=== PATIENT | male | born 1975 | race Caucasian/White ===

== ENCOUNTER 2020-07-10 12:36 | Observation (INO) ==
[2020-07-10] MEDS ORDERED: *HR* LORazepam 2 MG/ML VIAL ONE (12:45)
[2020-07-10] MEDS ORDERED: Isovue-370 500 ML BOTTLE IVP ONE (12:51)
[2020-07-10] MEDS ORDERED: levETIRAcetam 1,000 MG in 0.9 % Sodium Chloride 100 ML IVPB ONE (12:51)
[2020-07-10 13:36] LABS: Basophils # 0.1 K/mcL (0.0-0.2); Basophils % 0.6 %; Eosinophils # 0.1 K/mcL (0.0-0.6); Eosinophils % 1.3 %; Hematocrit 49.9 % (37.5-50.1); Hemoglobin 17.1 g/dL (12.9-16.9); Immature Granulocytes % 0.2 % (0-4); Lymphocytes % 19.3 %; Mean Corpuscular HGB Conc 34.3 g/dL (31.6-35.5); Mean Corpuscular Hemoglobin 30.3 pg (28.0-33.3); Mean Corpuscular Volume 88.5 fL (83.0-100.0); Mean Platelet Volume 10.7 fL (9.4-12.4); Monocytes # 0.5 K/mcL (0.0-1.3); Monocytes % 4.4 %; Neutrophils # 7.8 K/mcL (1.6-8.9); Platelet Count 273 K/mcL (140-400); Red Blood Count 5.64 M/mcL (4.19-5.50); Segmented Neutrophils % 74.2 %; White Blood Count 10.5 K/mcL (4.3-11.1)
[2020-07-10 13:45] LABS: INR 1.2; Prothrombin Time 13.5 Seconds (9.4-12.1)
[2020-07-10 13:54] LABS: Alanine Aminotransferase 27 Units/L (7-52); Albumin 4.9 g/dL (3.5-5.7); Albumin/Globulin Ratio 1.4 (1.1-2.2); Alkaline Phosphatase 132 Units/L (34-104); Aspartate Amino Transferase 25 Units/L (13-39); BUN/Creatinine Ratio 12 (6-26); Bilirubin,Direct 0.2 mg/dL (0.0-0.2); Bilirubin,Indirect 0.5 mg/dL (0.0-1.0); Bilirubin,Total 0.7 mg/dL (0.3-1.0); Blood Urea Nitrogen 11 mg/dL (6-20); Calcium 9.5 mg/dL (8.6-10.3); Carbon Dioxide 27 mEq/L (23-29); Chloride 101 mEq/L (98-107); Creatine Kinase 76 Units/L (30-223); Globulin 3.5 g/dL (2.4-3.5); Glucose 109 mg/dL (70-105); Lipase 24 Units/L (11-82); Magnesium 1.9 mg/dL (1.6-2.6); Osmolality,Calculated 284 (280-300); Potassium 3.8 mEq/L (3.5-5.1); Sodium 137 mEq/L (136-145); Total Protein 8.4 g/dL (6.4-8.9); Troponin I < 0.03 ng/mL (< 0.04); eGFR For African Americans > 60 (> 60); eGFR For Non-African Americans > 60 (> 60)
[2020-07-10] MEDS ORDERED: Naloxone 0.4 MG/ML INJ IVP PRN (16:31)
[2020-07-10] MEDS ORDERED: *HR* LORazepam 2 MG/ML VIAL IVP PRN (16:33)
[2020-07-11 06:04] LABS: Basophils # 0.1 K/mcL (0.0-0.2); Basophils % 0.7 %; Eosinophils # 0.2 K/mcL (0.0-0.6); Hematocrit 46.2 % (37.5-50.1); Hemoglobin 15.9 g/dL (12.9-16.9); Immature Granulocytes % 0.3 % (0-4); Lymphocytes # 2.9 K/mcL (0.6-4.6); Lymphocytes % 26.9 %; Mean Corpuscular HGB Conc 34.4 g/dL (31.6-35.5); Mean Corpuscular Hemoglobin 30.6 pg (28.0-33.3); Mean Platelet Volume 10.3 fL (9.4-12.4); Monocytes # 0.7 K/mcL (0.0-1.3); Monocytes % 6.3 %; Neutrophils # 6.8 K/mcL (1.6-8.9); Platelet Count 277 K/mcL (140-400); Red Blood Count 5.19 M/mcL (4.19-5.50); Red Cell Distribution Width 12.9 % (11.5-14.5); Segmented Neutrophils % 63.8 %; White Blood Count 10.7 K/mcL (4.3-11.1)
[2020-07-11 06:26] LABS: BUN/Creatinine Ratio 16 (6-26); Blood Urea Nitrogen 15 mg/dL (6-20); Calcium 9.5 mg/dL (8.6-10.3); Carbon Dioxide 27 mEq/L (23-29); Chloride 101 mEq/L (98-107); Glucose 95 mg/dL (70-105); Osmolality,Calculated 285 (280-300); Potassium 3.4 mEq/L (3.5-5.1); Sodium 137 mEq/L (136-145); eGFR For African Americans > 60 (> 60); eGFR For Non-African Americans > 60 (> 60)
[2020-07-11 07:33] VITALS: BP 123/85
[2020-07-11] MEDS ORDERED: Insulin LISPRO 300 UNITS/3 ML VIAL SUBQ SCH ×2 (08:00→21:00)
== END 2020-07-11 11:13 | disposition home or self-care (01) ==
LOC: EMEROOARM 12:36 → 3BNU 12:36
PROVIDERS: ADMIT Internal Medicine; ATTEND Internal Medicine